=== PATIENT | female | born 1955 | race Caucasian/White ===

== ENCOUNTER 2020-06-19 08:19 | Emergency (ER) | payer MEDICARE ==
[~2020-06-19] VITALS: Ht 165.1 cm; Wt 41.5 kg
[2020-06-19] MEDS ORDERED: MORPHINE SULFATE 4 MG/ML DISP.SYRIN. IV ONE ×2 (09:15→10:30)
[2020-06-19] MEDS ORDERED: IV NORMAL SALINE 1,000ML 1,000 ML IV ONE (09:15)
--- NOTE | 2020-06-19 09:31 | RAD ---
Single AP view of the chest. Comparison: None. Indication: Chest pain Findings: Lungs are hyperexpanded. The heart is not enlarged. There is no pneumothorax or effusion. No air space or interstitial disease. Impression: 1. No acute cardiopulmonary process. 2. Findings suggest COPD. Electronically signed by: Jassi Estrella MD (06/19/2020 9:28 AM) [id number]
--- NOTE | 2020-06-19 09:36 | RAD ---
KUB Clinical indications: Left lower flank pain. Kidney stone. FINDINGS: No radiopaque stone is seen overlying either renal shadow. No radiopaque stone of the course of either ureter is seen. No obstructive bowel pattern is evident. No organomegaly is evident. Surgical clips are seen within the midline of the lower abdomen and both sides of the anatomic pelvis. Osseous structures appear intact. Levoscoliosis and degenerative lumbar spondylosis is seen. IMPRESSION: No acute abnormality. No radiopaque stone. Electronically signed by: Tani Cook MD (06/19/2020 9:33 AM) [id number]
--- NOTE | 2020-06-19 09:40 | PHYS DOC ---
Past History Past Medical History: Kidney Stones, [place] Additional Past Medical Histor: uterine CA Past Surgical History: Hysterectomy Alcohol Use: None Adult General Chief Complaint Chief Complaint: FLANK PAIN HPI HPI Patient is a 64-year-old female who presents with left flank pain. Onset was yesterday evening without any known trauma. Nothing known makes better, physical activity and twisting of upper body make worse. Pain described as sharp, located at her left flank and radiates down into her groin region. Severity is 10/10 at times. Timing of symptoms has been constant and worsening since onset. Associated symptoms include nausea, pain, and increased anxiety. Patient denies any fever, recent febrile illness, headache, chest pain, shortness of breath, abdominal pain, complaints concerning for UTI such as dysuria or discharge, recent travel, recent COVID-19 exposure. Patient has a history of kidney stone last suffered greater than 15 years ago but reports this feels similar to prior episodes. She has never required invasive therapy for her kidney stones, they have always responded to supportive care and passed spontaneously Review of Systems Review of Systems Fourteen body systems of review of systems have been reviewed. See HPI for pertinent positives and negative responses, other hurtado all other systems are negative, non-pertinent or non-contributory Current Medications Current Medications Current Medications Medications (Trade) Dose Ordered Sig/Ramiro Start Time Stop Time Status Last Admin Dose Admin Morphine Sulfate (Morphine 4mg Syringe) 4 mg 1X ONCE 06/19/20 09:15 06/19/20 09:16 DC 06/19/20 09:28 4 MG Sodium Chloride 1,000 ml @ 1,000 mls/hr 1X ONCE 06/19/20 09:15 06/19/20 10:14 06/19/20 09:27 1,000 MLS/HR Allergies Allergies Allergies Coded Allergies Type Severity Reaction Last Updated Verified prochlorperazine Allergy Severe paralysis 06/19/20 Yes Physical Exam Physical Exam Constitutional: Well developed, well nourished, no acute distress, non-toxic appearance. [] HENT: Normocephalic, atraumatic, bilateral external ears normal, oropharynx moist, no oral exudates, nose normal. [] Eyes: PERRLA, EOMI, conjunctiva normal, no discharge. [] Neck: Normal range of motion, no tenderness, supple, no stridor. [] Cardiovascular:Heart rate regular rhythm, no murmur [] Lungs & Thorax: Bilateral breath sounds clear to auscultation [] Abdomen: Bowel sounds normal, soft, mild voluntary guarding on left side of abdomen, no tenderness, no masses, no pulsatile masses. [] Skin: Warm, dry, no erythema, no rash. [] Back: No tenderness, left CVA tenderness. [] Extremities: No tenderness, no cyanosis, no clubbing, ROM intact, no edema. [] Neurologic: Alert and oriented X 3, normal motor function, normal sensory function, no focal deficits noted. [] Psychologic: Affect normal, judgement normal, mood normal. [] Current Patient Data Vital Signs Vital Signs Date Time Temp Pulse Resp B/P (MAP) Pulse Ox O2 Delivery O2 Flow Rate FiO2 06/19/20 09:37 78 20 159/88 (111) 98 06/19/20 09:28 Room Air 06/19/20 08:44 97.8 EKG EKG EKG ordered and interpreted by myself at 0911 hrs. as normal sinus rhythm at 80 bpm, unremarkable intervals, no axis deviation, no ischemic findings, no STEMI Radiology/Procedures Radiology/Procedures PROCEDURE: PORTABLE CHEST 1V Single AP view of the chest. Comparison: None. Indication: Chest pain Findings: Lungs are hyperexpanded. The heart is not enlarged. There is no pneumothorax or effusion. No air space or interstitial disease. Impression: 1. No acute cardiopulmonary process. 2. Findings suggest COPD. Electronically signed by: Jassi Estrella MD (06/19/2020 9:28 AM) [id number] PROCEDURE: KUB KUB Clinical indications: Left lower flank pain. Kidney stone. FINDINGS: No radiopaque stone is seen overlying either renal shadow. No radiopaque stone of the course of either ureter is seen. No obstructive bowel pattern is evident. No organomegaly is evident. Surgical clips are seen within the midline of the lower abdomen and both sides of the anatomic pelvis. Osseous structures appear intact. Levoscoliosis and degenerative lumbar spondylosis is seen. IMPRESSION: No acute abnormality. No radiopaque stone. Electronically signed by: Tani Cook MD (06/19/2020 9:33 AM) [id number] PROCEDURE: RENAL COMPLETE BILATERAL RENAL COMPLETE BILATERAL History: Left pain, history of stone Comparison: None. Findings: Multiple sonographic images of the kidneys and retroperitoneal structures are submitted. There is mild right and moderate left hydronephrosis. Right kidney measured 12.5 x 6.2 x 4.8 cm. Left kidney measured 11.3 x 5.5 x 6.1 m. There is a hypoechoic lesion of the superior right kidney about 3.3 x 3.3 x 2.6 cm, evidence of a cyst. There is also hypoechoic lesion of the superior left kidney about 2.4 x 3 x 2.4 cm, evidence of a cyst. Left ureteral jet was not visualized during exam. Urinary bladder morphology is within normal limits, estimated prevoid volume of 75 cc. There is scattered plaque of the abdominal aorta. There is segmental visualization of the inferior vena cava. Impression: 1. There is moderate left and mild right hydronephrosis. Left ureteral jet was not visualized during exam although nonspecific. 2. There are bilateral renal cysts. Electronically signed by: Hollis Dubon MD (06/19/2020 10:51 AM) [id number] Course & Med Decision Making Course & Med Decision Making Patient who is self ambulatory was seen and evaluated by myself on immediate ER arrival Vital signs stable, comprehensive history and physical exam obtained with subsequent ordering of labs and imaging studies IV access obtained, IV fluid rehydration and a total of 8 mg IV morphine administered with good symptomatic relief ED course reviewed with patient. Discussed laboratory results in depth, also discussed nonconclusive imaging studies for any acute pathology Discussed potential need for CT scan of abdomen and pelvis; however, patient declined. I feel this is appropriate given patient is hemodynamically stable and afebrile at present I agree with patient that presenting symptom is likely recurrent kidney stone. I am comfortable with sending patient home with continued supportive care and close PCP and eventual urology follow-up Discussed this could be an acute presentation of a more serious process that may not have been present on laboratory studies, imaging studies, and obviously because we deferred CT abdomen pelvis today Prescription for Tylenol given today, patient to resume home buprenorphine for pain, patient to strain her urine daily for potential stone Strict return precautions such as fever, worsened anorexic behavior etc. were discussed with good understanding by patient All questions and concerns addressed prior to departure home in improved condition Jessicaon Disclaimer Dragon Disclaimer This electronic medical record was generated, in whole or in part, using a voice recognition dictation system. Departure Departure: Impression: Primary Impression: Left flank pain Additional Impression: History of kidney stones Disposition: HOME/RESIDENCE PRIOR TO ADM Condition: IMPROVED Referrals: PEARL CONROY (PCP) As discussed prior to ER departure, please call PCP to schedule follow-up in upcoming 1 to 7 days. Consider outpatient urologist referral Patient Instructions: Flank Pain Additional Instructions: You have been evaluated in the Emergency Department today for flank pain. Your evaluation was not suggestive of any emergent condition requiring medical intervention at this time. However, some abdominal problems make take more time to appear. Therefore, it is important for you to watch for any new symptoms or worsening of your current condition. As discussed, please follow-up with your PCP in upcoming 1 to 3 days. I would recommend repeat imaging and laboratory analysis to ensure resolution of aggravated kidneys. I feel you would also benefit from an outpatient urology referral, please discuss this with your PCP Return to the Emergency Department if you experience worsening pain, persistent fevers greater than 100.4, recurrent vomiting, blood in vomit, blood in stool, dark tarry stool, chest pain, difficulty breathing, or any other concerning symptoms. Scripts Acetaminophen Er (ACETAMINOPHEN ER) 650 Mg Tablet.er 1 TAB PO TID for PAIN for 21 Days, #63 TAB 0 Refills Prov: YUE DORSEY DO 06/19/20 Justification of Admission: Justification of Admission: Justification of Admission Dx: N/A Problem Qualifiers YUE DORSEY DO Jun 19, 2020 09:40
[2020-06-19 09:41] LABS: BASO # 0.1 x10^3/uL (0.0-0.2); BASO % 1 % (0-3); EOS % 0 % (0-3); HEMATOCRIT 45.9 % (36.0-47.0); HEMOGLOBIN 15.5 g/dL (12.0-15.5); LYMPH # 1.4 x10^3/uL (1.0-4.8); LYMPH % 9 % (24-48); MEAN CORPUSCULAR HEMOGLOBIN 31 pg (25-35); MEAN CORPUSCULAR HGB CONC 34 g/dL (31-37); MEAN CORPUSCULAR VOLUME 90 fL (79-100); MONO % 7 % (0-9); NEUT % 83 % (31-73); PLATELET COUNT 285 x10^3/uL (140-400); RED BLOOD COUNT 5.09 x10^6/uL (3.50-5.40); RED CELL DISTRIBUTION WIDTH 13.9 % (11.5-14.5); WHITE BLOOD COUNT 14.5 x10^3/uL (4.0-11.0)
[2020-06-19 09:55] LABS: BACTERIA,URINE 0 /HPF (0-FEW); BILIRUBIN,URINE NEG (NEG); CLARITY,URINE CLEAR; COLOR,URINE YELLOW; GLUCOSE,URINE NEG (NEG); NITRITE,URINE NEG (NEG); SQUAMOUS EPITHELIAL CELL,UR OCC /LPF; UROBILINOGEN,URINE 0.2 mg/dL (0.2 mg/dL); WBC,URINE OCC /HPF (0-4)
[2020-06-19 10:37] LABS: CALCIUM 7.7 mg/dL (8.5-10.1); CREATININE 1.2 mg/dL (0.6-1.0); GFR 45.1; POTASSIUM 3.6 mmol/L (3.5-5.1)
[2020-06-19 10:43] LABS: ALBUMIN 3.8 g/dL (3.4-5.0); ALBUMIN/GLOBULIN RATIO 1.2 (1.0-1.7); TOTAL BILIRUBIN 0.5 mg/dL (0.2-1.0)
--- NOTE | 2020-06-19 10:54 | RAD ---
RENAL COMPLETE BILATERAL History: Left pain, history of stone Comparison: None. Findings: Multiple sonographic images of the kidneys and retroperitoneal structures are submitted. There is mild right and moderate left hydronephrosis. Right kidney measured 12.5 x 6.2 x 4.8 cm. Left kidney measured 11.3 x 5.5 x 6.1 m. There is a hypoechoic lesion of the superior right kidney about 3.3 x 3.3 x 2.6 cm, evidence of a cyst. There is also hypoechoic lesion of the superior left kidney about 2.4 x 3 x 2.4 cm, evidence of a cyst. Left ureteral jet was not visualized during exam. Urinary bladder morphology is within normal limits, estimated prevoid volume of 75 cc. There is scattered plaque of the abdominal aorta. There is segmental visualization of the inferior vena cava. Impression: 1. There is moderate left and mild right hydronephrosis. Left ureteral jet was not visualized during exam although nonspecific. 2. There are bilateral renal cysts. Electronically signed by: Hollis Dubon MD (06/19/2020 10:51 AM) [id number]
[2020-06-19 11:08] VITALS: BP 160/91
[2020-06-19] MEDS ORDERED: ACET-1874 PO (11:19)
--- NOTE | 2020-06-19 15:22 | EKG ---
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
== END 2020-06-19 11:29 | disposition home or self-care (01) ==
LOC: ER 08:19
DX: R10.9 Unspecified abdominal pain (principal); R11.0 Nausea; Z87.442 Personal history of urinary calculi; I25.2 Old myocardial infarction; Z90.710 Acquired absence of both cervix and uterus; Z88.8 Allergy status to other drugs, medicaments and biological substances
CPT/HCPCS: 36415; 71045; 74018; 76770; 80053; 81001; 83690; 84484; 85025; 93005; 96361; 96374; 99285; J2270; J7030

== ENCOUNTER 2020-12-17 12:21 | Observation (INO) | payer MEDICARE ==
[~2020-12-17] VITALS: Ht 165.1 cm; Wt 44.2 kg
[~2020-12-17 12:21] MED LIST: ACET-1874 PO
[2020-12-17] MEDS ORDERED: IV NORMAL SALINE 1,000ML 1,000 ML IV ONE (12:45)
[2020-12-17] MEDS ORDERED: ALBUTEROL SULFATE 2.5 MG/3 ML NEBU. NEB ONE (12:45)
--- NOTE | 2020-12-17 12:48 | EKG ---
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
--- NOTE | 2020-12-17 12:53 | PHYS DOC ---
Past History Past Medical History: Kidney Stones, [place] Additional Past Medical Histor: uterine CA Past Surgical History: Hysterectomy Alcohol Use: None General Adult EDM: Chief Complaint: SHORTNESS OF BREATH HPI: HPI: Patient is a 65-year-old female who presents with shortness of breath. Patient called her physician this morning who called her and an albuterol inhaler. Patient reports that it did not help with her shortness of breath. Patient was satting 84% on arrival in the emergency room. Patient was placed on 2 L and breathing improved. Patient denies being on home O2 or using breathing treatments or inhalers at home. Patient is a 40-year smoker. Patient denies recent illness, cough, fever. Review of Systems: Review of Systems: Constitutional: Denies fever or chills Eyes: Denies change in visual acuity HENT: Denies nasal congestion or sore throat Respiratory: Denies cough reports shortness of breath Cardiovascular: Denies chest pain or edema GI: Denies abdominal pain, nausea, vomiting, bloody stools or diarrhea : Denies dysuria Musculoskeletal: Denies back pain or joint pain Integument: Denies rash Neurologic: Denies headache, focal weakness or sensory changes Endocrine: Denies polyuria or polydipsia Lymphatic: Denies swollen glands Psychiatric: Denies depression or anxiety Current Medications: Current Meds: Current Medications Medications (Trade) Dose Ordered Sig/Ramiro Start Time Stop Time Status Last Admin Dose Admin Sodium Chloride 1,000 ml @ 1,000 mls/hr 1X ONCE 12/17/20 12:45 12/17/20 13:44 Allergies: Allergies: Allergies Coded Allergies Type Severity Reaction Last Updated Verified prochlorperazine Allergy Severe paralysis 06/19/20 Yes Physical Exam: PE: Constitutional: Well developed, well nourished, no acute distress, non-toxic appearance. [] HENT: Normocephalic, atraumatic, bilateral external ears normal, oropharynx moist, no oral exudates, nose normal. [] Eyes: PERRLA, EOMI, conjunctiva normal, no discharge. [] Neck: Normal range of motion, no tenderness, supple, no stridor. [] Cardiovascular:Heart rate regular rhythm, no murmur [] Lungs & Thorax: Wheezing heard throughout on auscultation [] Abdomen: Bowel sounds normal, soft, no tenderness, no masses, no pulsatile masses. [] Skin: Warm, dry, no erythema, no rash. [] Back: No tenderness, no CVA tenderness. [] Extremities: No tenderness, no cyanosis, no clubbing, ROM intact, no edema. [] Neurologic: Alert and oriented X 3, normal motor function, normal sensory function, no focal deficits noted. [] Psychologic: Affect normal, judgement normal, mood normal. [] EKG: EKG: Sinus Rhythm.HR 100 BPM. No stemi, Read at 1242 [] Radiology/Procedures: Radiology/Procedures: []XR CHEST 1V 12/17/2020 12:50 PM INDICATION: Shortness of breath COMPARISON: 06/19/2020 TECHNIQUE: Portable frontal view of the chest is provided. FINDINGS: The cardiomediastinal silhouette is within normal limits. Lungs are clear. Severe pulmonary emphysematous changes are present. There are no significant pleural effusions. There is no pulmonary vascular congestion. No pneumothorax. No suspicious osseous abnormality. IMPRESSION: Severe COPD without acute cardiopulmonary process. Electronically signed by: Gisel Marquez MD (12/17/2020 1:04 PM) [id number] Heart Score: Risk Factors: Risk Factors: DM, Current or recent (<one month) smoker, HTN, HLP, family history of CAD, obesity. Risk Scores: Score 0 - 3: 2.5% MACE over next 6 weeks - Discharge Home Score 4 - 6: 20.3% MACE over next 6 weeks - Admit for Clinical Observation Score 7 - 10: 72.7% MACE over next 6 weeks - Early Invasive Strategies Course & Med Decision Making: Course & Med Decision Making Pertinent Labs and Imaging studies reviewed. (See chart for details) [Patient is a 65-year-old female who presents with shortness of breath. Patient called her physician this morning who called her and an albuterol inhaler. Patient reports that it did not help with her shortness of breath. Patient was satting 84% on arrival in the emergency room. Patient was placed on 2 L and breathing improved. Patient denies being on home O2 or using breathing treatments or inhalers at home. Patient is a 40-year smoker. Patient denies recent illness, cough, fever. Patient is tachypneic, and reports shortness of breath. Wheezing heard throughout on auscultation. Patient denies cough. Patient is not normally on O2 requiring 2 L nasal cannula. Patient denies history of COPD. Patient dates that she has smoked for 40 years. Patient's only health history is uterine cancer and total hysterectomy. Will order basic labs, cultures, lactic, D- dimer. Chest x-ray to rule out pneumonia. Chest x-ray shows COPD. Breathing treatment and Solu-Medrol ordered. D-dimer came back elevated 0.81. White count 16.3. Will order CTA to rule out PE.Patient started on azithromycin and rocephin. Covid test ordered. "Im still feeling short of breath but the breathing treatment did help". Patient 2L NC, 94%. Spoke with patient regarding admit to the hospital for further care. Patient is okay with this plan. Consulted with Dr. Awad who will accept this patient at [facility]. Impression 1.Hypoxia 2.PUI ] Efraín Disclaimer: Efraín Disclaimer: This electronic medical record was generated, in whole or in part, using a voice recognition dictation system. Departure Departure: Impression: Primary Impression: Hypoxia Additional Impression: Person under investigation for COVID-19 Disposition: 09 ADMITTED INPT THIS HOSP Admitting Physician: Niall Manzano Condition: STABLE Referrals: PEARL CONROY (PCP) SHAYY CASON APRN Dec 17, 2020 12:53
[2020-12-17] MEDS ORDERED: methylPREDNISolone SOD SUCC PF 125 MG/2 ML VIAL. IV ONE (13:00)
--- NOTE | 2020-12-17 13:06 | RAD ---
XR CHEST 1V 12/17/2020 12:50 PM INDICATION: Shortness of breath COMPARISON: 06/19/2020 TECHNIQUE: Portable frontal view of the chest is provided. FINDINGS: The cardiomediastinal silhouette is within normal limits. Lungs are clear. Severe pulmonary emphysema tous changes are present. There are no significant pleural effusions. There is no pulmonary vascular congestion. No pneumothora x. No suspicious osseous abnormality. IMPRESSION: Severe COPD without acute cardiopulmonary process. Electronically signed by: Gisel Marquez MD (12/17/2020 1:04 PM) [id number]
[2020-12-17 13:14] LABS: BASO # 0.1 x10^3/uL (0.0-0.2); BASO % 1 % (0-3); EOS # 0.1 x10^3/uL (0.0-0.7); EOS % 1 % (0-3); HEMATOCRIT 43.4 % (36.0-47.0); HEMOGLOBIN 14.3 g/dL (12.0-15.5); LYMPH # 0.8 x10^3/uL (1.0-4.8); LYMPH % 5 % (24-48); MEAN CORPUSCULAR HEMOGLOBIN 30 pg (25-35); MEAN CORPUSCULAR HGB CONC 33 g/dL (31-37); MEAN CORPUSCULAR VOLUME 91 fL (79-100); MONO # 0.3 x10^3/uL (0.0-1.1); MONO % 2 % (0-9); NEUT % 92 % (31-73); PLATELET COUNT 272 x10^3/uL (140-400); RED BLOOD COUNT 4.74 x10^6/uL (3.50-5.40); RED CELL DISTRIBUTION WIDTH 13.8 % (11.5-14.5); WHITE BLOOD COUNT 16.3 x10^3/uL (4.0-11.0)
[2020-12-17 13:24] LABS: CALCIUM 7.3 mg/dL (8.5-10.1); CREATININE 0.7 mg/dL (0.6-1.0); GFR 83.7; POTASSIUM 3.5 mmol/L (3.5-5.1)
[2020-12-17 13:30] LABS: ALBUMIN 3.7 g/dL (3.4-5.0); TOTAL BILIRUBIN 0.2 mg/dL (0.2-1.0); TOTAL PROTEIN 7.5 g/dL (6.4-8.2)
[2020-12-17] MEDS ORDERED: IOHEXOL 350 MG/ML 100 ML VIAL. IV ONE (14:15)
[2020-12-17] MEDS ORDERED: AZITHROMYCIN 500 MG in IV NORMAL SALINE 250ML 250 ML IV ONE (14:15)
[2020-12-17 14:30] LABS: BILIRUBIN,URINE NEG (NEG); CLARITY,URINE CLEAR; COLOR,URINE YELLOW; GLUCOSE,URINE 100 mg/dL (NEG)
[2020-12-17 14:31] LABS: BACTERIA,URINE 0 /HPF (0-FEW); NITRITE,URINE NEG (NEG); SQUAMOUS EPITHELIAL CELL,UR FEW /LPF; UROBILINOGEN,URINE 0.2 mg/dL (0.2 mg/dL); WBC,URINE OCC /HPF (0-4)
[2020-12-17] MEDS ORDERED: IV NORMAL SALINE 50ML 50 ML ONE (14:54)
[2020-12-17] MEDS ORDERED: cefTRIAXone SODIUM 1 GM VIAL ONE (14:54)
[2020-12-17] MEDS ORDERED: IV NORMAL SALINE 250ML 250 ML ONE (14:55)
[2020-12-17] MEDS ORDERED: AZITHROMYCIN 500 MG VIAL. IV ONE (14:55)
--- NOTE | 2020-12-17 15:07 | RAD ---
CTA CHEST INDICATION: elevated d dimer, shortness of breath Comparison: Radiograph 12/17/2020. TECHNIQUE: Following the uneventful administration of intravenous contrast, 75 cc Omnipaque 300, axia l CT sections were obtained through the lungs and upper abdomen. Multiplanar reconstructions and MIP images were obtained. RS compliance statement: One or more of the following individualized dose reduction techniques were utilized for this examinat ion: 1. Automated exposure control 2. Adjustment of the mA and/or kV according to patient size 3. Use of iterative reconstruction technique FINDINGS: Pulmonary arteries: No evidence of pulmonary thromboembolic disease. Lungs and Airways: No pulmonary mass or consolidation. Biapical subpleural fibrosis. Bibasilar depend ent and subsegmental atelectasis. Centrilobular emphysema. Endobronchial mucous plugging. Pleura: The pleural spaces are normal. Heart and Mediastinum: The visualized thyroid is normal in size and attenuation. No axillary or supra clavicular lymphadenopathy. No mediastinal, hilar or retrocrural lymphadenopathy. Normal cardiac size . No pericardial effusion. Coronary artery atherosclerotic disease. Atherosclerosis of the thoracic a hanna. Abdomen: Limited images through the upper abdomen show no abnormality of the visualized organs. Bones and Soft Tissues: Degenerative changes of the spine. IMPRESSION: 1. No evidence of pulmonary thromboembolic disease. 2. No pulmonary mass or consolidation. Electronically signed by: Hollis Clement MD (12/17/2020 3:05 PM) [facility]
[2020-12-17] MEDS ORDERED: BUPRENORPHINE 2 MG SL STA (15:13)
[2020-12-17 19:00] VITALS: BP 144/78
[2020-12-17] MEDS ORDERED: TRAZ150T49 PO (20:04)
[2020-12-17] MEDS ORDERED: BUPR2TAB SL (20:04)
[2020-12-17] MEDS: IV NORMAL SALINE 1,000ML 1,000 ML IV SCH (20:15)
[2020-12-17] MEDS ORDERED: traZODone 50 MG TABLET. PO ONE (20:30)
[2020-12-17] MEDS ORDERED: ROPI3TAB PO (20:40)
[2020-12-17] MEDS: ACETAMINOPHEN 325 MG TABLET PO SCH (20:54)
[2020-12-17] MEDS ORDERED: rOPINIRole 1 MG TABLET. PO PRN (21:00)
[2020-12-17 22:07] LABS: % LYMPHS 7 % (24-48); % MONOS 2 % (0-10); % SEGS 91 % (35-66); PLT ESTIMATE ADEQUATE (ADEQUATE)
[2020-12-17 23:15] VITALS: BP 100/61
[2020-12-18 06:33] VITALS: BP 121/66
[2020-12-18] MEDS: ACETAMINOPHEN 325 MG TABLET PO SCH (08:00)
[2020-12-18] MEDS: IV NORMAL SALINE 1,000ML 1,000 ML IV SCH (09:20)
--- NOTE | 2020-12-18 09:56 | HP ---
ADMIT DATE: 12/18/2020 ATTENDING PHYSICIAN: Dr. Sow. CHIEF COMPLAINT: Shortness of breath. HISTORY OF PRESENT ILLNESS: The patient is a 65-year-old female admitted through the ED with increasing shortness of breath. She has been taking her albuterol. Unfortunately, she continues to smoke. In the ED, she had extensive workup, chest x-ray showed no acute infiltrate. CT of the chest showed no pulmonary embolus. She was having room air saturation 84%. Supplemental oxygen was added on 2 liters. She was admitted for further treatment and evaluation. She continues to smoke a pack of cigarettes daily. PAST MEDICAL HISTORY: Significant for uterine cancer with hysterectomy 20 years ago. She has had kidney stones and supposed a previous myocardial infarction. PAST SURGICAL HISTORY: Hysterectomy 2000. ALLERGIES: PROCHLORPERAZINE, EXACT REACTION IS UNCLEAR. CURRENT SCHEDULED MEDICATIONS: At home include the following: She was on scheduled albuterol recently. She was prescribed prednisone, she had not gotten it yet. She was taking trazodone at bedtime, Requip, ____ and Tylenol. SOCIAL HISTORY: Smoking history as noted. FAMILY HISTORY: Noncontributory. REVIEW OF SYSTEMS: She lives with her . She has been fairly isolated. There is no recent COVID exposure. No fevers, chills, cough or congestion. All other systems reviewed and turned to be negative. She has been losing weight. she states ever since her surgery 20 years ago. PHYSICAL EXAMINATION: VITAL SIGNS: When I saw her, her blood pressure was 121/66 mmHg, oxygen saturation 93% on 2 liters of nasal cannula, temperature 97.7 degrees Fahrenheit, pulse 80 and regular. HEENT: Head is without trauma. Pupils are reactive. Sclerae are nonicteric. Oropharynx is clear. NECK: Supple. No stridor, no bruits. LUNGS: Good breath sounds with minimal wheezing, no rhonchi. CARDIOVASCULAR: Showed regular heart tones. No gallops. Peripheral pulses are palpable and full. ABDOMEN: Soft, scaphoid, nontender. EXTREMITIES: Showed significant muscle wasting. There is no cyanosis. NEUROLOGIC: Focally intact. SKIN: Warm and dry. PERTINENT LABORATORY STUDIES: Hemoglobin is 14.3 g/dL, white count 16,300. Electrolytes within normal range. Nonfasting blood sugar 141. Cardiac enzymes negative for coronary ischemia. IMAGING STUDIES: She had a CT of the chest and chest x-ray done, which showed no acute infiltrates, no pulmonary embolus identified. ASSESSMENT: 1. A 65-year-old female with acute on chronic respiratory failure. 2. Advanced emphysema and chronic obstructive pulmonary disease. 3. Continued tobacco addiction. 4. History of uterine cancer. 5. Pulmonary cachexia with protein-calorie malnutrition. PLAN: 1. Observation status. 2. Cortical steroids. 3. Empiric Zithromax will be continued. 4. Diet as tolerated. 5. Await COVID-19 coronavirus. 6. Wean down supplemental oxygen. MARVA SOW MD DR: ISIAH/jazmyne JOB#: [id number] / [id number] PEARL Mathew
--- NOTE | 2020-12-18 10:00 | DS ---
DATE OF DISCHARGE: 12/18/2020 ATTENDING PHYSICIAN: Dr. Sow. FINAL DISCHARGE DIAGNOSES: 1. Acute on chronic respiratory failure. 2. Exacerbation of chronic obstructive pulmonary disease with strong emphysema component. 3. Coronavirus status is still pending. 4. Continued tobacco addiction. 5. History of uterine cancer. 6. Pulmonary cachexia and protein-calorie malnutrition. HISTORY AND PHYSICAL: The patient is a 65-year-old female admitted through the ED with increasing shortness of breath. She had hypoxia and chronic respiratory failure. She continues to smoke heavily, at least a pack of cigarettes daily. PHYSICAL EXAMINATION: Please see the dictated note. PERTINENT LABORATORY AND X-RAY STUDIES: Initial imaging CT of the chest demonstrated no blood clots. Chest x-ray was clear. There is no acute infiltrates identified. COVID-19 swab was still pending at the time of discharge. Her hemoglobin was 14.3 g/dL, white count 16,000. Electrolytes within normal range. Nonfasting blood sugar 141. Cardiac enzymes negative for coronary ischemia. COURSE IN THE HOSPITAL: The patient was admitted overnight. She was given supplemental oxygen, empiric corticosteroids and continuation of her Zithromax. We also gave her albuterol through the form of a metered dose inhaler due to COVID precautions. COVID swab was done in the ED was still pending at the time of discharge. She did well. By the next morning when I saw her, her vital signs are stable. She was afebrile. She had no further symptoms and her oxygen saturation came up to 91% on room air. She wanted to go home. I felt this is reasonable. I explained to her that she can call back tomorrow to get the results of her COVID swab. I expect this to be not symptomatic. She has no other symptoms. In the meantime, she should continue her Zithromax 250 one daily for 6 days in the form of Z-MICHELLE, prednisone 40 mg p.o. daily and continuation of her albuterol. Other home meds include continuation of her buprenorphine for pain, Requip and trazodone, doses unchanged. She will follow up with her regular physician at scheduled time. The patient was then discharged from our hospital in stable condition with explicit instructions and followup care. Once again, we will notify her or she can call back tomorrow regarding the results of her COVID swab. MARVA SOW MD DR: ISIAH/jazmyne JOB#: [id number] / [id number] PEARL Mathew
[2020-12-18 10:18] VITALS: BP 138/72
[2020-12-18] MEDS ORDERED: traZODone 150 MG TABLET. PO SCH (21:00)
== END 2020-12-18 10:36 | disposition home or self-care (01) ==
LOC: ER 12:21 → 1 SOUTH 14:48 → INTOOBSV 14:48
PROVIDERS: ADMIT Internal Medicine; ATTEND Internal Medicine
DX: J96.21 Acute and chronic respiratory failure with hypoxia (principal); Z20.828 Contact with and (suspected) exposure to other viral communicable diseases; J43.9 Emphysema, unspecified; R64 Cachexia; E46 Unspecified protein-calorie malnutrition; I25.2 Old myocardial infarction; F17.210 Nicotine dependence, cigarettes, uncomplicated; Z85.42 Personal history of malignant neoplasm of other parts of uterus; Z87.442 Personal history of urinary calculi; Z90.710 Acquired absence of both cervix and uterus; Z68.1 Body mass index [BMI] 19.9 or less, adult
CPT/HCPCS: 36415; 71045; 71275; 80053; 81001; 83605; 84484; 85007; 85025; 85379; 87040; 93005; 94640; 96361; 96365; 96375; 99285; G0378; J0456; J0696; J2930; J7030; J7050; J7613; Q9967; U0003; G0379

== ENCOUNTER → 2021-07-30 | Outpatient (CLI) | payer MEDICARE ==
[~2021-07-30] MED LIST changes: +BUPR2TAB SL; +ROPI3TAB PO; +TRAZ150T49 PO
--- NOTE | 2021-07-30 09:03 | RAD ---
INDICATION: Reason: left flank pain / Spl. Instructions: / History: COMPARISON: None. TECHNIQUE: Axial CT images were obtained through the abdomen and pelvis without intravenous contrast. One or more of the following individualized dose reduction techniques were utilized for this examinat ion: 1. Automated exposure control; 2. Adjustment of the mA and/or kV according to patient size; 3 . Use of iterative reconstruction technique. FINDINGS: Hyperexpansion at lung bases which can be seen with emphysema. Linear opacities at lung bases which c an be seen with scarring. Vascular: Severe calcific atherosclerosis. Hepatobiliary: Enlarged liver. Suspected cyst within. Common bile duct is mildly prominent in size me asuring 6-7 mm. Pancreas: Not well evaluated given lack of contrast. Spleen: Spleen unremarkable. Renal: There is multiple cystic lesions bilateral kidneys. No hydronephrosis. There are some suspecte d renal calcifications. Bladder: Minimal urine within at time of exam. Gastrointestinal: There is very little intra-abdominal fat and no oral or intravenous contrast theref ore evaluation of bowel is very limited. No definite dilated loops of bowel to suggest obstruction. T he appendix is not well seen. Prominence the wall of colon but not very distended. Osseous demineralization. Mild scoliotic curvature the spine. Degenerative changes throughout the spi ne with multilevel central canal and neural foraminal stenosis. Mild compression deformity of L5. Mil d retrolisthesis of L2 on 3 and L3 on 4 IMPRESSION: * No hydronephrosis. * Limited evaluation of the bowel secondary to lack of intravenous and oral contrast as well as lack of intra-abdominal fat. Apparent prominence of the colon. Could be from lack of distention but cause s such as colitis not excluded. * Severe calcific atherosclerosis. * Emphysematous changes at lung bases. * Bilateral renal cysts as well as high density foci which could be secondary to calcification. * Mild compression fracture L5 as well as degenerative changes. Electronically signed by: Colton Mane MD (07/30/2021 9:01 AM) [id number]
== END ==
LOC: CT 08:10
PROVIDERS: ATTEND Family Medicine
DX: N28.1 Cyst of kidney, acquired (principal); J43.9 Emphysema, unspecified; M48.56XA Collapsed vertebra, not elsewhere classified, lumbar region, initial encounter for fracture; M47.816 Spondylosis without myelopathy or radiculopathy, lumbar region
CPT/HCPCS: 74176

== ENCOUNTER → 2021-12-01 | Outpatient (CLI) | payer MEDICARE ==
--- NOTE | 2021-12-01 09:21 | RAD ---
XR ABDOMEN COMP ACUTE History: Abdomen pain Comparison: CT abdomen and pelvis 07/30/2021, chest x-ray 12/17/2020 Technique: Frontal chest with upright and supine radiographs of the abdomen and pelvis. Findings: Chest: The lungs are hyperexpanded. No focal airspace consolidation, pleural effusion or pneumothorax . Bowel gas pattern: Nonobstructive bowel gas pattern. No excessive stool burden. Free air: None. Abnormal calcifications: None. Bones: Levoconvex curvature of the lumbar spine with advanced degenerative disc disease L2-L4. Other: Multiple abdominopelvic surgical clips. Impression: 1. No acute findings. Electronically signed by: Kolby Liao MD (12/01/2021 9:19 AM) [id number]
[2021-12-01 11:16] LABS: BASO # 0.1 x10^3/uL (0.0-0.2); BASO % 1 % (0-3); EOS % 0 % (0-3); HEMATOCRIT 42.2 % (36.0-47.0); HEMOGLOBIN 14.3 g/dL (12.0-15.5); LYMPH # 2.7 x10^3/uL (1.0-4.8); LYMPH % 23 % (24-48); MEAN CORPUSCULAR HEMOGLOBIN 31 pg (25-35); MEAN CORPUSCULAR HGB CONC 34 g/dL (31-37); MEAN CORPUSCULAR VOLUME 92 fL (79-100); MONO # 0.7 x10^3/uL (0.0-1.1); MONO % 6 % (0-9); NEUT # 8.3 x10^3uL (1.8-7.7); NEUT % 71 % (31-73); PLATELET COUNT 299 x10^3/uL (140-400); RED BLOOD COUNT 4.57 x10^6/uL (3.50-5.40); RED CELL DISTRIBUTION WIDTH 13.7 % (11.5-14.5); WHITE BLOOD COUNT 11.7 x10^3/uL (4.0-11.0)
[2021-12-01 11:29] LABS: ALBUMIN 3.7 g/dL (3.4-5.0); ALBUMIN/GLOBULIN RATIO 1.3 (1.0-1.7); CALCIUM 7.6 mg/dL (8.5-10.1); CREATININE 0.5 mg/dL (0.6-1.0); GFR 123.1; POTASSIUM 4.1 mmol/L (3.5-5.1); TOTAL BILIRUBIN 0.6 mg/dL (0.2-1.0); TOTAL PROTEIN 6.5 g/dL (6.4-8.2)
[2021-12-01 13:28] LABS: SEDIMENTATION RATE 2 (0-25)
== END ==
LOC: RAD 11:02
PROVIDERS: ATTEND Family Medicine
DX: R10.9 Unspecified abdominal pain (principal); M51.36 Other intervertebral disc degeneration, lumbar region
CPT/HCPCS: 36415; 74022; 80053; 82150; 83690; 84484; 85025; 85651